=== PATIENT | male | born 1965 | race African-American/Black ===

== ENCOUNTER 2019-07-23 21:45 | Emergency (ER) | payer OTHER ==
[~2019-07-23] VITALS: Ht 170.2 cm; Wt 75.0 kg
[2019-07-23 21:47] VITALS: BP 159/96
== END 2019-07-24 00:04 | disposition left against medical advice (07) ==
LOC: ER 21:45
DX: Z53.21 Procedure and treatment not carried out due to patient leaving prior to being seen by health care provider (principal)

== ENCOUNTER 2022-12-20 12:48 | Emergency (ER) | payer MEDICAID, OTHER ==
[~2022-12-20] VITALS: Ht 177.8 cm; Wt 80.0 kg
[2022-12-20 12:51] VITALS: BP 142/90
[2022-12-20] MEDS ORDERED: MECLIZINE 25MG TABLET PO ONE (13:00)
[2022-12-20] MEDS ORDERED: ONDANSETRON HCL 4MG/2ML INJ IV ONE (13:00)
== END 2022-12-20 17:03 | disposition left against medical advice (07) ==
LOC: ER 12:48
DX: R42 Dizziness and giddiness (principal)
CPT/HCPCS: 93005; 99281; J8597

== ENCOUNTER 2025-04-13 20:04 | Emergency (ER) | payer MEDICAID ==
[~2025-04-13] VITALS: Ht 175.3 cm; Wt 72.0 kg
[2025-04-13 20:09] VITALS: BP 177/96; PULSE 61; RESP 16; TEMP 36.7; O2SAT 97
== END 2025-04-13 21:01 | disposition left against medical advice (07) ==
LOC: ER 20:04
DX: R41.82 Altered mental status, unspecified (principal); I10 Essential (primary) hypertension
CPT/HCPCS: 99281